=== PATIENT | female | born 1955 | race Caucasian/White ===

== ENCOUNTER 2018-05-25 11:41 | Outpatient (CLI) | payer BC | END 2018-05-25 11:42 | disposition home or self-care (01) | LOC: BICMAMMO 11:41 | PROVIDERS: ATTEND Family Medicine | DX: Z12.31 Encounter for screening mammogram for malignant neoplasm of breast (principal); Z80.3 Family history of malignant neoplasm of breast | CPT/HCPCS: 77063; 77067 ==

== ENCOUNTER 2018-11-12 16:15 | Outpatient (CLI) | payer BC ==
--- NOTE | 2018-11-12 16:41 | RAD ---
EXAM: CHEST TWO VIEWS: History: Dyspnea for one week, obese. Patient cannot raise arms. Comparison: 01-27-17 FINDINGS: Poor inspiration with cardiomegaly and bilateral vascular congestion. This congestion is worse when c ompared to the prior study. No confluent lobar pneumonia. IMPRESSION: Poor inspiration with cardiomegaly and bilateral vascular congestion which is worse from the prior study. POS: [facility]
== END 2018-11-12 16:16 | disposition home or self-care (01) ==
LOC: BICRAD 16:15
PROVIDERS: ATTEND Family Medicine
DX: R06.02 Shortness of breath (principal); I51.7 Cardiomegaly; R91.8 Other nonspecific abnormal finding of lung field; R09.89 Other specified symptoms and signs involving the circulatory and respiratory systems
CPT/HCPCS: 36415; 71046; 80053; 83880; 85379

== ENCOUNTER 2018-11-13 13:01 | Outpatient (CLI) | payer BC ==
--- NOTE | 2018-11-13 13:57 | CT ---
FCT angiogram chest: 11/13/2018 COMPARISON: None HISTORY: Shortness of breath, elevated d-dimer, assess for pulmonary embolism TECHNIQUE: Axial CT imaging at 2 mm intervals through the chest with IV contrast using a CT angiogram protocol. Coronal and oblique 3-D reformatted imaging obtained. FINDINGS: No axillary, hilar, or mediastinal lymphadenopathy. Imaged upper abdomen unremarkable. Small bilateral pleural effusions noted. Trace pericardial fluid in the superior pericardial recess. Punctate focus of coronary artery calcification on axial image 79. No pulmonary arterial filling defects seen to suggest the presence of acute pulmonary arterial emboli sm. No endobronchial lesion noted. No focal pulmonary parenchymal mass lesion or nodule noted on either side. Review of the osseous structures demonstrates no acute findings. IMPRESSION: No CT angiographic evidence of acute pulmonary arterial embolism. Small bilateral pleural effusions.
== END 2018-11-13 13:02 | disposition home or self-care (01) ==
LOC: SCSCT 13:01
PROVIDERS: ATTEND Physician Assistant
DX: R06.02 Shortness of breath (principal); R89.9 Unspecified abnormal finding in specimens from other organs, systems and tissues; J90 Pleural effusion, not elsewhere classified
CPT/HCPCS: 71275

== ENCOUNTER 2018-11-16 11:55 | Inpatient (IN) | payer BC ==
[2018-11-16 14:01] VITALS: BMI 50.8
[2018-11-16] MEDS ORDERED: Fleet Enema 133 ML BOT PR PRN (14:18)
[2018-11-16] MEDS ORDERED: Milk Of Magnesia 30 ML UDCUP PO PRN (14:18)
[2018-11-16] MEDS ORDERED: Mag-Al 1200 mg/1200 mg/30 ML UDCUP PO PRN (14:18)
[2018-11-16] MEDS ORDERED: Bisacodyl 5 MG TAB PO PRN (14:18)
[2018-11-16 14:51] LABS: #Basophils 0.1 thou/uL (0.0-0.2); #Lymphocytes 2.1 thou/uL (1.20-3.40); #Monocytes 1.3 thou/uL (0.11-0.59); #Neutrophils 7.8 thou/uL (1.40-6.50); %Basophils 0.9 % (0.0-1.0); %Eosinophils 0.2 % (0.0-10.0); %Lymphocytes 18.5 % (21.0-51.0); %Monocytes 11.5 % (0.0-10.0); Hemoglobin 13.8 g/dL (12.0-16.0); Mean Corpuscular HGB CONC 31.8 g/dL (32.0-36.0); Mean Corpuscular Hemoglobin 31.3 pg (27.0-31.0); Mean Corpuscular Volume 98.4 fL (78.0-98.0); Mean Platelet Volume 8.3 fL (7.4-10.4); Platelet Count 219 thou/uL (130-400); White Blood Cell (WBC) Count 11.3 thou/uL (4.8-10.8)
[2018-11-16 15:13] LABS: Anion Gap 13 mmol/L (10-20); BUN (Urea Nitrogen) 18 mg/dL (9.8-20.1); Calc. Creatinine Clearance 151 mL/min (70-130); Calcium 9.6 mg/dL (7.8-10.44); Carbon Dioxide 30 mmol/L (23-31); Chloride 105 mmol/L (98-107); Estimated GFR-MDRD 60; Glucose 97 mg/dL (80-115); Potassium 3.6 mmol/L (3.5-5.1); Sodium 144 mmol/L (136-145)
[2018-11-16] MEDS: Diltiazem 125 MG in Sodium Chloride 0.9% 100 ML IVPB SCH (15:32)
[2018-11-16] MEDS ORDERED: Sodium Chloride 0.9% 10 ML ONE (15:40)
[2018-11-16] MEDS ORDERED: Furosemide 40 MG/4 ML VIAL SLOW IVP SCH (16:00)
[2018-11-16] MEDS: Apixaban 5 MG TAB PO SCH (20:53)
[2018-11-17] MEDS: Apixaban 5 MG TAB PO SCH ×2 (08:43→21:37)
[2018-11-17] MEDS: Diltiazem 125 MG in Sodium Chloride 0.9% 100 ML IVPB SCH (13:15)
--- NOTE | 2018-11-17 15:10 | PDOC.CTH ---
Cardiology Progress Note - Subjective No new issues. - Objective Vital Signs Temp Pulse Resp BP Pulse Ox 11/17/18 11:45 98.2 F 97 18 131/95 H 98 11/17/18 07:43 97.5 F L 97 15 132/86 93 L 11/17/18 04:45 95 11/17/18 03:30 97.6 F 94 18 128/85 Weight 341 lb 3.2 oz 11/16/18 11/17/18 11/18/18 06:59 06:59 06:59 Intake Total 826.6 590 Output Total 1590 Balance -763.4 590 - Physical Examination General/Neuro: alert & oriented x3, NAD Neck: no JVD present Lungs: CTA, unlabored respirations Heart: RRR Abdomen: NT/ND Extremities: other: (no edema) - Telemetry Telemetry Rhythm: Afib HR 110;. - Labs Result Diagrams: 11/16/18 14:34 11/16/18 14:34 - Assessment/Plan 1. Afib RVR 2. Bronchial asthma, well controlled. 3. Depression PLAN: - Continue rate control - Increase diltiazem to 10 mg/hr - Eliquis for stroke prophylaxis.
[2018-11-18] MEDS: Diltiazem 125 MG in Sodium Chloride 0.9% 100 ML IVPB SCH ×2 (02:37→16:26)
[2018-11-18 05:14] LABS: Hemoglobin 13.2 g/dL (12.0-16.0); Platelet Count 195 thou/uL (130-400)
[2018-11-18] MEDS: Apixaban 5 MG TAB PO SCH ×2 (08:37→20:46)
--- NOTE | 2018-11-18 17:48 | PDOC.CTH ---
Cardiology Progress Note - Subjective She feels well. Remains in afib. - Objective Vital Signs Temp Pulse Resp BP Pulse Ox 11/18/18 11:55 97.5 F L 91 18 142/96 H 99 11/18/18 08:01 97.7 F 91 19 127/89 94 L Weight 343 lb 12.8 oz 11/17/18 11/18/18 11/19/18 06:59 06:59 06:59 Intake Total 826.6 1645 Output Total 1590 500 Balance -763.4 1145 - Physical Examination General/Neuro: alert & oriented x3, NAD Neck: no JVD present Lungs: unlabored respirations Heart: other: (Irreg irregh) Abdomen: soft Extremities: other: (no edema) - Telemetry Telemetry Rhythm: Afib HR 100-120 - Labs Result Diagrams: 11/18/18 04:27 11/18/18 04:27 - Assessment/Plan 1. Afib RVR 2. Bronchial asthma, well controlled. 3. Depression PLAN: - Continue rate control - Will start beta murray. - Will start Flecainide for possible PATRICE Cardioversion if cant achieve rate control. - Eliquis for stroke prophylaxis.
[2018-11-18] MEDS: Flecainide 50 MG TAB PO SCH (20:46)
[2018-11-18] MEDS: Metoprolol Tartrate 25 MG TAB PO SCH (20:46)
[2018-11-19] MEDS: Diltiazem 125 MG in Sodium Chloride 0.9% 100 ML IVPB SCH ×2 (04:51→21:17)
[2018-11-19] MEDS: Metoprolol Tartrate 25 MG TAB PO SCH ×2 (10:16→20:50)
[2018-11-19] MEDS: Flecainide 50 MG TAB PO SCH ×2 (10:16→20:50)
[2018-11-19] MEDS: Apixaban 5 MG TAB PO SCH ×2 (10:16→20:50)
[2018-11-19] MEDS ORDERED: PROPOFOL 200 MG/20 ML VIAL ONE (15:09)
[2018-11-19] MEDS ORDERED: PROPOFOL 20 ML ONE (16:34)
[2018-11-19] MEDS ORDERED: Diltiazem HCl SR 90 mg Capsule PO SCH (21:00)
[2018-11-20 05:17] LABS: Hemoglobin 13.9 g/dL (12.0-16.0); Platelet Count 203 thou/uL (130-400)
--- NOTE | 2018-11-20 06:11 | PDOC.CTH ---
Cardiology Progress Note - Subjective Rate cotnrol better on CCB and low dose BB. Decreased IV CCB to 5mg/hr IV - Objective Vital Signs Temp Pulse Resp BP Pulse Ox 11/20/18 04:00 97.5 F L 69 21 H 114/77 93 L 11/20/18 00:00 98.5 F 83 20 107/78 92 L 11/19/18 20:00 97.4 F L 79 20 106/68 96 Weight 343 lb 12.8 oz 11/18/18 11/19/18 11/20/18 06:59 06:59 06:59 Intake Total 1645 1160 110 Output Total 500 420 Balance 1145 740 110 - Physical Examination General/Neuro: alert & oriented x3, NAD Neck: carotid US brisk, no JVD present Lungs: CTA, unlabored respirations Heart: other: (IRR) Abdomen: NT/ND, soft Extremities: + femoral B - Telemetry Telemetry Rhythm: afib - Labs Result Diagrams: 11/20/18 04:50 11/20/18 04:50 - Assessment/Plan afib Cardiomyopathy obesity Check echo today increase CCB Change lopressor to coreg Pt with spontaneous echo contrast on echo. Incomplete study given hypoxia during the PATRICE. Continue with rate control Add amiodarone PO given low EF
[2018-11-20] MEDS ORDERED: Furosemide 40 MG/4 ML VIAL IVP SCH (06:15)
[2018-11-20] MEDS: Apixaban 5 MG TAB PO SCH ×2 (08:13→20:45)
[2018-11-20] MEDS: Carvedilol 3.125 MG TAB PO SCH ×2 (08:13→20:45)
[2018-11-20] MEDS: Diltiazem HCl SR 90 mg Capsule PO SCH ×4 (08:14→20:45)
[2018-11-20] MEDS ORDERED: Carvedilol 6.25 MG TAB PO SCH (09:00)
--- NOTE | 2018-11-21 05:53 | PDOC.CTH ---
Cardiology Progress Note - Subjective HR better overall./ No complaints - Objective Vital Signs Temp Pulse Resp BP Pulse Ox 11/21/18 04:00 97.7 F 78 20 102/67 97 11/21/18 00:00 84 110/77 11/20/18 20:00 97.6 F 83 20 129/72 95 Weight 343 lb 12.8 oz 11/19/18 11/20/18 11/21/18 06:59 06:59 06:59 Intake Total 9588 967 6463 Output Total 420 Balance 860 239 5538 - Physical Examination General/Neuro: alert & oriented x3, NAD Neck: no JVD present Lungs: unlabored respirations Heart: other: (irr) Abdomen: NT/ND, soft Extremities: + femoral B - Telemetry Telemetry Rhythm: IRR - Labs Result Diagrams: 11/21/18 06:18 11/21/18 06:18 - Assessment/Plan Afib Obesity MIld to moderate CM Change CCB to long acting Increase coreg Check labs Decrease IV CCB Ambulate Add amiodarone Home tomorrow if rate stable
[2018-11-21] MEDS ORDERED: Furosemide 40 MG/4 ML VIAL IVP SCH (06:00)
[2018-11-21 07:21] LABS: #Basophils 0.1 thou/uL (0.0-0.2); #Eosinphils 0.1 thou/uL (0.0-0.7); #Lymphocytes 1.7 thou/uL (1.20-3.40); #Monocytes 1.2 thou/uL (0.11-0.59); #Neutrophils 6.4 thou/uL (1.40-6.50); %Basophils 1.1 % (0.0-1.0); %Eosinophils 0.9 % (0.0-10.0); %Lymphocytes 17.8 % (21.0-51.0); %Monocytes 12.6 % (0.0-10.0); %Neutrophils 67.6 % (42.0-75.0); Hemoglobin 13.3 g/dL (12.0-16.0); Mean Corpuscular HGB CONC 31.5 g/dL (32.0-36.0); Mean Corpuscular Hemoglobin 31.1 pg (27.0-31.0); Mean Corpuscular Volume 98.5 fL (78.0-98.0); Mean Platelet Volume 8.4 fL (7.4-10.4); Platelet Count 195 thou/uL (130-400); RBC Distribution Width 12.7 % (11.5-14.5); Red Blood Cell (RBC) Count 4.27 mill/uL (4.20-5.40); White Blood Cell (WBC) Count 9.4 thou/uL (4.8-10.8)
[2018-11-21 07:28] LABS: Anion Gap 10 mmol/L (10-20); BUN (Urea Nitrogen) 17 mg/dL (9.8-20.1); Calc. Creatinine Clearance 173 mL/min (70-130); Calcium 9.1 mg/dL (7.8-10.44); Carbon Dioxide 33 mmol/L (23-31); Chloride 101 mmol/L (98-107); Estimated GFR-MDRD 70; Glucose 101 mg/dL (80-115); Sodium 140 mmol/L (136-145)
[2018-11-21] MEDS: Amiodarone 200 MG TAB PO SCH ×2 (08:41→20:02)
[2018-11-21] MEDS: Apixaban 5 MG TAB PO SCH ×2 (08:42→20:01)
[2018-11-21] MEDS: Carvedilol 3.125 MG TAB PO SCH ×2 (08:42→20:01)
[2018-11-21] MEDS ORDERED: Diltiazem 125 MG in Sodium Chloride 0.9% 100 ML IVPB SCH (11:00)
[2018-11-22 05:59] LABS: Platelet Count 177 thou/uL (130-400)
[2018-11-22] MEDS: Amiodarone 200 MG TAB PO SCH (08:28)
[2018-11-22] MEDS: Apixaban 5 MG TAB PO SCH (08:29)
[2018-11-22] MEDS: Carvedilol 3.125 MG TAB PO SCH (08:29)
--- NOTE | 2018-11-22 10:56 | DIS ---
DATE OF ADMISSION: 11/16/2018 DATE OF DISCHARGE: 11/22/2018 DISCHARGE DIAGNOSES: 1. Atrial fibrillation with rapid ventricular response. 2. Pxjp-hy-rjwhizxu congestive heart failure. 3. Morbid obesity. PROCEDURE: Transesophageal echocardiogram. HOSPITAL COURSE: Ms. De Santiago is a 63-year-old woman, whom I saw and evaluated as an outpatient. She was found to be in new onset atrial fibrillation with rapid ventricular response. Heart rate was in the 160s to 170s. It was decided to proceed with admission for close observation and rate control. She underwent attempted rate control over the weekend. This was unsuccessful. She continued to be on IV Cardizem. She was scheduled for PATRICE cardioversion on 11/19/2018. There were some issues noted with PATRICE. This was limited. She developed hypoxia in the middle of the study. There were limited views. There was significant spontaneous echo contrast noted within the left atrial appendage. Given limited views, decided not to proceed with cardioversion. Overall, LVEF did appear to be 40%. It was then decided on proceeding with a more aggressive rate control. She was placed on Cardizem at 360 q.a.m. in addition to low-dose beta-murray therapy. She did achieve rate control with discontinuing IV Cardizem on day of discharge. She did diurese with Lasix. Plan is to proceed with cardioversion as an outpatient after she has received 4 weeks of anticoagulation therapy. DISCHARGE MEDICATIONS: Include; 1. Centrum Silver and cranberry as prescribed. 2. Vitamin D as prescribed. 3. Prozac 40 q.a.m. 4. Symbicort as prescribed. 5. ProAir as prescribed. 6. Lasix 40 q.a.m. 7. Amiodarone 400 mg 1 p.o. q.a.m. 8. Eliquis 5 mg p.o. b.i.d. 9. Carvedilol 6.25 b.i.d. 10. Diltiazem 360 q.a.m. 11. Lasix 40 daily. CONDITION ON DISCHARGE: Stable. Job ID: [id number]
[2018-11-22 12:06] VITALS: BP 121/79; TEMP 97.5
--- NOTE | 2018-11-23 09:10 | PQF ---
[employer] Teletype Technician Crystal Reports Winform Viewer SANDY SAMPSON RICARDO MD [id number] CLINICAL DOCUMENTATION CLARIFICATION FORM: POST DISCHARGE Addendum to original discharge summary date: ____ Late entry note date: __ DATE: November 23, 2018 ATTN:Dr Tania Brambila Please exercise your independent, professional judgment in responding to the clarification form. Clinical indicators are provided on the bottom of this form for your review Based on your clinical judgment kindly clarify the type and acuity of the patients CHF. Please check appropriate box(s): HEART FAILURE: A. TYPE: [ ] Systolic / HFrEF [ ] Diastolic / HFpEF [ ] Combined Systolic / Diastolic B. ACUITY [ ] Acute [ ] Acute on Chronic [ ] Chronic [ ] Other diagnosis [ ] Unable to determine In addition, please specify: Present on Admission (POA): [ ] Yes [ ] No [ ] Unable to determine For continuity of documentation, please document condition throughout progress notes and discharge summary. Thank You. CLINICAL INDICATORS - SIGNS / SYMPTOMS / LABS -PN by Dr. Brambila 11/20 pg2 Cardiomyopathy -DS by Dr. Brambila 11/22, pg1 Mild to moderate Congestive heart failure -DS by Dr. Brambila 11/22, pg1 There was some issues noted with PATRICE, This was limited. She developed hypoxia in the middle of the study. -TTE results 11/20 - Ejection Fraction =40 % -Vital Signs 11/20 O2 Sat 92 L -PN by Dr. Landin 11/18 pg1- Telemetry Rhythm : 100-120 -Laboratory report 11/20 - FPA=562.2 H RISKS: -Atrial Fibrillation RVR- PN Cardiology 11/16 pg1 -Morbid Obesity-DS 11/[address] Brambila -Mild to Moderate CM PN 11/[address] Brambila TREATMENTS: -Furosemide Lasix IV- 11/16 -Cavedilol 6.25 mg twice a day - OCT -Telemetry Heart Failure Panel -TTE- 11/[address] Brambila -Oxygen 1L via Nasal cannula Respiratory Panel (This form is maintained as a part of the permanent medical record) 2014 [employer] All Rights Reserved Allison [email or web address] [not provided] MTDD
== END 2018-11-22 12:44 | disposition home or self-care (01) | DRG 309 ==
LOC: 2NO 12:03 → OBSVTOIN 12:03
PROVIDERS: ADMIT Internal Medicine Cardiovascular Disease; ATTEND Internal Medicine Cardiovascular Disease
PROC: B24BZZ4 Ultrasonography of Heart with Aorta, Transesophageal (ICD-10-PCS; principal; 2018-11-19)
DX: I48.91 Unspecified atrial fibrillation (principal); Z68.43 Body mass index [BMI] 50.0-59.9, adult; J45.998 Other asthma; F32.9 Major depressive disorder, single episode, unspecified; I42.9 Cardiomyopathy, unspecified; E66.01 Morbid (severe) obesity due to excess calories; R09.02 Hypoxemia; I50.9 Heart failure, unspecified; Z88.2 Allergy status to sulfonamides; Z88.8 Allergy status to other drugs, medicaments and biological substances; Z88.1 Allergy status to other antibiotic agents; Z88.5 Allergy status to narcotic agent; Z79.82 Long term (current) use of aspirin; Z79.51 Long term (current) use of inhaled steroids; Z79.52 Long term (current) use of systemic steroids
CPT/HCPCS: 36415; 71275; 80048; 82565; 83880; 84443; 85014; 85018; 85025; 85049; 92960; 93306; 93312; J1940; J2704; J7050

== ENCOUNTER 2019-07-22 19:00 | Outpatient (CLI) | payer BC | END 2019-07-22 19:01 | disposition home or self-care (01) | LOC: SLEEPLAB 19:00 | PROVIDERS: ATTEND Internal Medicine Pulmonary Disease | DX: G47.33 Obstructive sleep apnea (adult) (pediatric) (principal); E66.9 Obesity, unspecified | CPT/HCPCS: 95806 ==

== ENCOUNTER 2020-09-24 09:03 | Outpatient (CLI) | payer MEDICARE, BC ==
--- NOTE | 2020-09-24 10:11 | MMO ---
Bilateral MAMMO Bilat Screen [facility]. CLINICAL HISTORY: Patient is 65 years old and is seen for screening. The patient has the following family history of breast cancer: sister, at age 51. The patient has no personal history of cancer. VIEWS: The views performed were: bilateral craniocaudal with tomosynthesis and bilateral mediolateral oblique with tomosynthesis. FILMS COMPARED: The present examination has been compared to prior imaging studies performed at [facility] on 10/03/2013, 10/22/2014, 10/13/2016 and 05/25/2018. This study has been interpreted with the assistance of computer-aided detection. MAMMOGRAM FINDINGS: There are scattered fibroglandular densities. There are no suspicious masses, suspicious calcifications, or new areas of architectural distortion. IMPRESSION: THERE IS NO MAMMOGRAPHIC EVIDENCE OF MALIGNANCY. A ROUTINE FOLLOW-UP MAMMOGRAM IN 1 YEAR IS RECOMMENDED. THE RESULTS OF THIS EXAM WERE SENT TO THE PATIENT. ACR BI-RADS Category 1 - Negative MAMMOGRAPHY NOTE: 1. A negative mammogram report should not delay a biopsy if a dominant of clinically suspicious mass is present. 2. Approximately 10% to 15% of breast cancers are not detected by mammography. 3. Adenosis and dense breasts may obscure an underlying neoplasm. Reported by: ZARINA ORELLANA MD Electonically Signed: [id number]
== END 2020-09-24 09:04 | disposition home or self-care (01) ==
LOC: BICMAMMO 09:03
PROVIDERS: ATTEND Physician Assistant
DX: Z12.31 Encounter for screening mammogram for malignant neoplasm of breast (principal); Z80.3 Family history of malignant neoplasm of breast
CPT/HCPCS: 77063; 77067

== ENCOUNTER 2021-07-16 10:48 | Outpatient (CLI) | payer MEDICARE, BC ==
[2021-07-16 12:30] LABS: #Basophils 0.2 10x3/uL (0.0-0.2); #Eosinphils 0.1 10x3/uL (0.0-0.5); #Monocytes 0.9 10x3/uL (0.0-1.1); #Neutrophils 7.7 10x3/uL (1.5-8.4); %Basophils 1.2 % (0.0-2.0); %Eosinophils 0.8 % (0.0-6.0); %Lymphocytes 25.8 % (18.0-47.0); %Monocytes 7.8 % (0.0-10.0); %Neutrophils 63.7 % (40.0-75.0); Hemoglobin 15.4 g/dL (12.0-15.5); Mean Corpuscular HGB CONC 31.9 g/dL (32.0-36.0); Mean Corpuscular Hemoglobin 31.7 pg (27.0-33.0); Mean Corpuscular Volume 99.4 fl (81.6-98.3); Mean Platelet Volume 9.5 fl (7.4-10.4); Platelet Count 347 10x3/uL (150-450); RBC Distribution Width 13.3 % (11.5-14.5); Red Blood Cell (RBC) Count 4.86 10x6/uL (3.90-5.03); White Blood Cell (WBC) Count 12.1 10x3/uL (3.5-10.5)
[2021-07-16 12:44] LABS: Prothrombin Time 10.7 sec (9.5-12.1)
[2021-07-16 12:48] LABS: Anion Gap 17 mmol/L (10-20); BUN (Urea Nitrogen) 15 mg/dL (9.8-20.1); Calc. Creatinine Clearance 0 mL/min (70-130); Calcium 9.1 mg/dL (7.8-10.44); Carbon Dioxide 23 mmol/L (23-31); Chloride 103 mmol/L (98-107); Glucose 103 mg/dL (80-115); Sodium 139 mmol/L (136-145)
[2021-07-16 16:53] LABS: Bilirubin Neg (Negative); Blood, Urine Negative (Negative); Clarity Slightly Cloudy (Clear); Glucose, Urine (Dipstick) Normal (Negative); Ketone, Urine Negative (Negative); Leukocyte 500 (Negative); Nitrite Negative (Negative); Protein, Urine (Dipstick) 30 mg/dl (Neg-Trace)
[2021-07-16 23:18] LABS: SARS-CoV-2 PCR by NAA Not Detected (NotDetected)
== END 2021-07-16 10:49 | disposition home or self-care (01) ==
LOC: LABBT 10:48
PROVIDERS: ATTEND Orthopaedic Surgery
DX: Z01.818 Encounter for other preprocedural examination (principal); M17.11 Unilateral primary osteoarthritis, right knee; Z20.822 Contact with and (suspected) exposure to COVID-19
CPT/HCPCS: 80048; 81003; 85025; 85610; 87081; 93005; U0003; U0005; 93010

== ENCOUNTER 2021-07-20 06:40 | Inpatient (IN) | payer MEDICARE, BC ==
[2021-07-14 11:17] VITALS: BMI 41.2
[2021-07-20] MEDS ORDERED: Levofloxacin 500 mg/D5W 100 ml Premix Bag ONE (07:38)
[2021-07-20] MEDS ORDERED: Sodium Chloride 0.9% 100 ML ONE (07:38)
[2021-07-20] MEDS ORDERED: Tranexamic Acid 1,000 MG/10 ML VIAL ONE (07:38)
[2021-07-20] MEDS ORDERED: Bupivacaine PF 0.5% 30 ML VIAL ONE (08:03)
[2021-07-20] MEDS ORDERED: Fentanyl 100 MCG/2 ML VIAL ONE ×6 (08:11→14:02)
[2021-07-20] MEDS ORDERED: Midazolam HCl 2 mg/2 ml Vial ONE (08:11)
[2021-07-20] MEDS ORDERED: diphenhydrAMINE 25 MG CAP PO PRN (08:57)
[2021-07-20] MEDS ORDERED: Zolpidem Tartrate 5 MG TAB PO PRN ×2 (08:57→09:15)
[2021-07-20] MEDS ORDERED: traMADol HCl 50 MG TAB PO PRN ×3 (08:57→09:15)
[2021-07-20] MEDS ORDERED: Acetaminophen 325 MG TAB PO PRN (08:57)
[2021-07-20] MEDS ORDERED: HYDROcodone/Acetaminophen 10/325 mg Tablet PO PRN ×2 (08:57)
[2021-07-20] MEDS ORDERED: Promethazine HCl 25 MG/ML VIAL IM PRN ×3 (08:57→11:23)
[2021-07-20] MEDS ORDERED: Fentanyl 100 MCG/2 ML VIAL SLOW IVP PRN ×2 (08:57→09:07)
[2021-07-20] MEDS ORDERED: Ondansetron PF 4 MG/2 ML Vial IVP PRN ×2 (08:57→09:15)
[2021-07-20] MEDS ORDERED: Ropivacaine 0.2% 550 ML 550 ML NERVE BLCK SCH (09:15)
[2021-07-20] MEDS ORDERED: Bupivacaine HCl 0.5%/Epinephrine 1:200,000/PF 30 ml Vial ONE (09:28)
[2021-07-20] MEDS ORDERED: Lidocaine 1% PF 5 ML VIAL ONE (09:28)
[2021-07-20] MEDS ORDERED: Dexamethasone 20 MG/5 ML VIAL ONE (09:28)
[2021-07-20] MEDS ORDERED: Ondansetron PF 4 MG/2 ML Vial ONE (09:28)
[2021-07-20] MEDS ORDERED: PROPOFOL 200 MG/20 ML VIAL ONE (09:28)
[2021-07-20] MEDS ORDERED: Promethazine HCl 25 MG/ML VIAL IVPB PRN (11:23)
[2021-07-20] MEDS ORDERED: Ondansetron HCl/PF 4 MG/2 ML Vial IVP PRN (11:23)
[2021-07-20] MEDS ORDERED: Morphine Sulfate 2 MG/ML SYRINGE SLOW IVP PRN (11:23)
[2021-07-20] MEDS ORDERED: Ketorolac Tromethamine 30 MG/ML VIAL IVP SCH (14:00)
[2021-07-20] MEDS: Carvedilol 3.125 MG TAB PO SCH ×2 (15:54→21:52)
[2021-07-20] MEDS: Bumetanide 1 MG TAB PO SCH (15:54)
[2021-07-20] MEDS: Aspirin 81 mg Enteric Coated Tablet PO SCH ×2 (15:54→21:52)
[2021-07-20] MEDS: Digoxin 0.25 MG TAB PO SCH (15:54)
[2021-07-20] MEDS: FLUoxetine HCl 20 MG CAP PO SCH (15:55)
[2021-07-20] MEDS: Acetaminophen 325 MG TAB PO SCH ×3 (15:55→22:39)
[2021-07-20] MEDS: Sodium Chloride 0.9% 1,000 ML IV SCH ×2 (15:55→20:20)
[2021-07-20] MEDS: Ketorolac Tromethamine 30 MG/ML VIAL IVP SCH ×3 (15:56→22:39)
[2021-07-20] MEDS ORDERED: Vancomycin HCl 1.5 GM in Sodium Chloride 0.9% 250 ML 300 ML IVPB SCH (21:00)
[2021-07-20] MEDS ORDERED: Vancomycin 1.5 GRAM/300 ML BAG 1.5 GM in Premix Bag 1 BAG IVPB SCH (21:00)
[2021-07-20] MEDS ORDERED: Simvastatin 10 MG TAB PO SCH (21:00)
[2021-07-21] MEDS: Acetaminophen 325 MG TAB PO SCH ×5 (02:12→16:27)
[2021-07-21] MEDS: Sodium Chloride 0.9% 1,000 ML IV SCH ×2 (04:43→15:05)
[2021-07-21] MEDS: Ketorolac Tromethamine 30 MG/ML VIAL IVP SCH ×2 (05:16→11:46)
[2021-07-21 06:15] LABS: Hemoglobin 13.6 g/dL (12.0-16.0); Mean Corpuscular HGB CONC 32.8 g/dL (32.0-36.0); Mean Corpuscular Hemoglobin 33.1 pg (27.0-31.0); Mean Platelet Volume 6.7 fL (7.4-10.4); Platelet Count 312 thou/uL (130-400); Red Blood Cell (RBC) Count 4.11 mill/uL (4.20-5.40)
[2021-07-21] MEDS ORDERED: Ferrous Gluconate 324 MG TAB PO SCH (08:00)
[2021-07-21] MEDS ORDERED: Cholecalciferol 1,000 UNITS (25 MCG) TAB PO SCH (09:00)
[2021-07-21] MEDS ORDERED: Multivitamin W/ Minerals 1 TAB PO SCH (09:00)
[2021-07-21] MEDS ORDERED: Senokot S 8.6-50 MG TAB PO SCH (09:00)
[2021-07-21] MEDS: Aspirin 81 mg Enteric Coated Tablet PO SCH (09:33)
[2021-07-21] MEDS: FLUoxetine HCl 20 MG CAP PO SCH (09:33)
[2021-07-21] MEDS: Digoxin 0.25 MG TAB PO SCH (09:34)
[2021-07-21] MEDS: Bumetanide 1 MG TAB PO SCH (11:47)
[2021-07-21] MEDS: Carvedilol 3.125 MG TAB PO SCH (11:48)
[2021-07-21 16:25] VITALS: TEMP 97.7
[2021-07-21 16:27] VITALS: BP 93/62
== END 2021-07-21 18:00 | DRG 470 ==
LOC: SDC 06:40 → SURG A 14:29
PROVIDERS: ADMIT Orthopaedic Surgery; ATTEND Internal Medicine Geriatric Medicine
PROC: 0SRC0J9 Replacement of Right Knee Joint with Synthetic Substitute, Cemented, Open Approach (ICD-10-PCS; principal; 2021-07-20)
PROC: 8E0YXBZ Computer Assisted Procedure of Lower Extremity (ICD-10-PCS; 2021-07-20)
DX: M17.11 Unilateral primary osteoarthritis, right knee (principal); I48.92 Unspecified atrial flutter; Z68.41 Body mass index [BMI] 40.0-44.9, adult; I48.20 Chronic atrial fibrillation, unspecified; Z20.822 Contact with and (suspected) exposure to COVID-19; E78.5 Hyperlipidemia, unspecified; I11.0 Hypertensive heart disease with heart failure; I50.9 Heart failure, unspecified; E66.01 Morbid (severe) obesity due to excess calories; Z88.2 Allergy status to sulfonamides; Z88.5 Allergy status to narcotic agent; Z88.1 Allergy status to other antibiotic agents
CPT/HCPCS: 36415; 85027; A4306; C1713; C1776; J1100; J1885; J1956; J2250; J2405; J2704; J2795; J3010; J3370; J3490; J7030; S0020

== ENCOUNTER 2022-02-17 13:20 | Outpatient (CLI) | payer MEDICARE, BC ==
[2022-02-17 14:30] LABS: #Basophils 0.1 10x3/uL (0.0-0.2); #Eosinphils 0.1 10x3/uL (0.0-0.5); #Monocytes 1.5 10x3/uL (0.0-1.1); #Neutrophils 12.5 10x3/uL (1.5-8.4); %Basophils 0.6 % (0.0-2.0); %Eosinophils 0.4 % (0.0-6.0); %Lymphocytes 20.9 % (18.0-47.0); %Monocytes 8.2 % (0.0-10.0); Hemoglobin 15.7 g/dL (12.0-15.5); Mean Corpuscular HGB CONC 32.2 g/dL (32.0-36.0); Mean Corpuscular Hemoglobin 31.5 pg (27.0-33.0); Platelet Count 393 10x3/uL (150-450); RBC Distribution Width 14.1 % (11.5-14.5); Red Blood Cell (RBC) Count 4.98 10x6/uL (3.90-5.03); White Blood Cell (WBC) Count 18.1 10x3/uL (3.5-10.5)
[2022-02-17 14:51] LABS: Anion Gap 17 mmol/L (10-20); BUN (Urea Nitrogen) 20 mg/dL (9.8-20.1); Calc. Creatinine Clearance 0 mL/min (70-130); Calcium 9.7 mg/dL (7.8-10.44); Carbon Dioxide 28 mmol/L (23-31); Chloride 101 mmol/L (98-107); Estimated GFR 56; Glucose 98 mg/dL (80-115); Sodium 142 mmol/L (136-145)
[2022-02-17 14:53] LABS: INR-International Normal Ratio 0.9; Prothrombin Time 10.1 sec (9.5-12.1)
== END 2022-02-17 13:21 | disposition home or self-care (01) ==
LOC: LABBT 13:20
PROVIDERS: ATTEND Orthopaedic Surgery
DX: Z01.818 Encounter for other preprocedural examination (principal); M17.32 Unilateral post-traumatic osteoarthritis, left knee; Z20.822 Contact with and (suspected) exposure to COVID-19
CPT/HCPCS: 80048; 85025; 85610; 87081; 87811; 93005; 93010

== ENCOUNTER 2022-04-14 13:26 | Outpatient (CLI) | payer MEDICARE, BC ==
[2022-04-14 16:30] LABS: #Basophils 0.1 10x3/uL (0.0-0.2); #Eosinphils 0.1 10x3/uL (0.0-0.5); #Monocytes 0.9 10x3/uL (0.0-1.1); #Neutrophils 8.1 10x3/uL (1.5-8.4); %Basophils 0.9 % (0.0-2.0); %Eosinophils 0.8 % (0.0-6.0); %Lymphocytes 27.1 % (18.0-47.0); %Monocytes 7.4 % (0.0-10.0); %Neutrophils 63.1 % (40.0-75.0); Hemoglobin 14.9 g/dL (12.0-15.5); Mean Corpuscular HGB CONC 32.9 g/dL (32.0-36.0); Mean Corpuscular Hemoglobin 32.3 pg (27.0-33.0); Mean Corpuscular Volume 98.3 fl (81.6-98.3); Mean Platelet Volume 9.6 fl (7.4-10.4); Platelet Count 342 10x3/uL (150-450); RBC Distribution Width 14.5 % (11.5-14.5); Red Blood Cell (RBC) Count 4.61 10x6/uL (3.90-5.03); White Blood Cell (WBC) Count 12.8 10x3/uL (3.5-10.5)
[2022-04-14 16:37] LABS: Prothrombin Time 10.5 sec (9.5-12.1)
[2022-04-14 17:07] LABS: Anion Gap 18 mmol/L (10-20); BUN (Urea Nitrogen) 15 mg/dL (9.8-20.1); Calc. Creatinine Clearance 0 mL/min (70-130); Calcium 9.5 mg/dL (7.8-10.44); Carbon Dioxide 28 mmol/L (23-31); Chloride 99 mmol/L (98-107); Estimated GFR 63; Glucose 151 mg/dL (80-115); Potassium 3.9 mmol/L (3.5-5.1); Sodium 141 mmol/L (136-145)
== END 2022-04-14 13:27 | disposition home or self-care (01) ==
LOC: LABBT 13:26
PROVIDERS: ATTEND Orthopaedic Surgery
DX: Z01.818 Encounter for other preprocedural examination (principal); M17.32 Unilateral post-traumatic osteoarthritis, left knee; Z20.822 Contact with and (suspected) exposure to COVID-19
CPT/HCPCS: 80048; 85025; 85610; 87081; 87811; 93005; 93010

== ENCOUNTER 2022-04-19 05:35 | Inpatient (IN) | payer MEDICARE, BC ==
[2022-04-19] MEDS ORDERED: Tranexamic Acid 1,000 MG/10 ML VIAL ONE (06:03)
[2022-04-19] MEDS ORDERED: Vancomycin (BATCH) 1.5 GRAM/300 ML BAG ONE (06:03)
[2022-04-19] MEDS ORDERED: Sodium Chloride 0.9% 100 ML ONE (06:03)
[2022-04-19] MEDS ORDERED: fentaNYL Citrate/PF 100 MCG/2 ML SYRINGE ONE (06:20)
[2022-04-19] MEDS ORDERED: Bupivacaine PF 0.5% 30 ML VIAL ONE (06:25)
[2022-04-19] MEDS ORDERED: Fentanyl 100 MCG/2 ML VIAL ONE ×2 (06:38→09:38)
[2022-04-19] MEDS ORDERED: Midazolam HCl 2 mg/2 ml Vial ONE (06:38)
[2022-04-19] MEDS ORDERED: Levofloxacin 500 mg/D5W 100 ml Premix Bag ONE (06:43)
[2022-04-19] MEDS ORDERED: diphenhydrAMINE 25 MG CAP PO PRN (06:54)
[2022-04-19] MEDS ORDERED: Acetaminophen 325 MG TAB PO PRN (06:54)
[2022-04-19] MEDS ORDERED: traMADol HCl 50 MG TAB PO PRN ×4 (06:54→07:45)
[2022-04-19] MEDS ORDERED: Zolpidem Tartrate 5 MG TAB PO PRN ×2 (06:54→07:45)
[2022-04-19] MEDS ORDERED: Ondansetron PF 4 MG/2 ML Vial IVP PRN ×2 (06:54→07:45)
[2022-04-19] MEDS ORDERED: Promethazine HCl 25 MG/ML VIAL IM PRN ×3 (06:54→09:23)
[2022-04-19] MEDS ORDERED: Meclizine HCl 25 MG TAB PO PRN (06:56)
[2022-04-19] MEDS ORDERED: PROPOFOL 200 MG/20 ML VIAL ONE (07:20)
[2022-04-19] MEDS ORDERED: Phenylephrine 10 MG/ML VIAL ONE (07:20)
[2022-04-19] MEDS ORDERED: Ondansetron PF 4 MG/2 ML Vial ONE (07:20)
[2022-04-19] MEDS ORDERED: Dexamethasone 20 MG/5 ML VIAL ONE (07:20)
[2022-04-19] MEDS ORDERED: Bupivacaine HCl 0.5%/Epinephrine 1:200,000/PF 30 ml Vial ONE (07:20)
[2022-04-19] MEDS ORDERED: Fentanyl 100 MCG/2 ML VIAL SLOW IVP PRN (07:42)
[2022-04-19] MEDS ORDERED: Ropivacaine 0.2% 550 ML 550 ML NERVE BLCK SCH (07:45)
[2022-04-19] MEDS ORDERED: GLUCOSAMINE HCL 750 MG PO SCH (09:00)
[2022-04-19] MEDS ORDERED: Non-Formulary Item 1 EACH (Folic Acid/Multivit-Min/Lutein [Centrum Silver Chewable] 1 TAB PO SCH (09:00)
[2022-04-19] MEDS ORDERED: Ondansetron HCl/PF 4 MG/2 ML Vial IVP PRN (09:23)
[2022-04-19] MEDS ORDERED: Promethazine HCl 25 MG/ML VIAL IVPB PRN (09:23)
[2022-04-19] MEDS ORDERED: Meperidine HCl/PF 25 MG/ML VIAL SLOW IVP PRN (09:23)
[2022-04-19] MEDS: Bumetanide 1 MG TAB PO SCH (11:22)
[2022-04-19] MEDS: Aspirin 81 mg Enteric Coated Tablet PO SCH ×2 (11:22→21:02)
[2022-04-19] MEDS: FLUoxetine HCl 20 MG CAP PO SCH (11:23)
[2022-04-19] MEDS: Digoxin 0.25 MG TAB PO SCH (11:23)
[2022-04-19] MEDS: Cholecalciferol 1,000 UNITS (25 MCG) TAB PO SCH (11:23)
[2022-04-19] MEDS: Ketorolac Tromethamine 30 MG/ML VIAL IVP SCH ×3 (12:16→23:25)
[2022-04-19] MEDS: Acetaminophen 500 MG TAB PO SCH ×3 (12:17→23:25)
[2022-04-19] MEDS: Sodium Chloride 0.9% 1,000 ML IV SCH ×3 (12:17→21:56)
[2022-04-19 15:39] VITALS: BMI 47.9
[2022-04-19] MEDS ORDERED: Vancomycin 1.5 GRAM/300 ML BAG 1.5 GM in Premix Bag 1 BAG IVPB SCH (20:00)
[2022-04-19] MEDS: Simvastatin 10 MG TAB PO SCH (21:02)
[2022-04-20] MEDS: Acetaminophen 500 MG TAB PO SCH ×4 (05:59→23:37)
[2022-04-20] MEDS: Ketorolac Tromethamine 30 MG/ML VIAL IVP SCH ×4 (06:00→23:39)
[2022-04-20 06:20] LABS: Hemoglobin 12.4 g/dL (12.0-16.0); Mean Corpuscular HGB CONC 33.1 g/dL (32.0-36.0); Mean Corpuscular Hemoglobin 33.5 pg (27.0-31.0); Platelet Count 253 thou/uL (130-400); Red Blood Cell (RBC) Count 3.69 mill/uL (4.20-5.40); White Blood Cell (WBC) Count 23.4 thou/uL (4.8-10.8)
[2022-04-20] MEDS: Senokot S 8.6-50 MG TAB PO SCH ×2 (08:38→21:31)
[2022-04-20] MEDS: Bumetanide 1 MG TAB PO SCH (08:38)
[2022-04-20] MEDS: Digoxin 0.25 MG TAB PO SCH (08:38)
[2022-04-20] MEDS: FLUoxetine HCl 20 MG CAP PO SCH (08:38)
[2022-04-20] MEDS: Cholecalciferol 1,000 UNITS (25 MCG) TAB PO SCH (08:39)
[2022-04-20] MEDS: Aspirin 81 mg Enteric Coated Tablet PO SCH ×2 (08:39→21:30)
[2022-04-20] MEDS: Ferrous Gluconate 324 MG TAB PO SCH ×2 (08:39→18:11)
[2022-04-20] MEDS: Multivitamin W/ Minerals 1 TAB PO SCH (08:39)
[2022-04-20] MEDS: Sodium Chloride 0.9% 1,000 ML IV SCH ×2 (16:07→23:38)
[2022-04-20] MEDS: Simvastatin 10 MG TAB PO SCH (21:31)
[2022-04-21 06:00] LABS: Hemoglobin 12.1 g/dL (12.0-16.0); Mean Corpuscular HGB CONC 32.5 g/dL (32.0-36.0); Mean Corpuscular Hemoglobin 33.4 pg (27.0-31.0); Mean Platelet Volume 7.1 fL (7.4-10.4); Platelet Count 239 thou/uL (130-400); RBC Distribution Width 13.4 % (11.5-14.5); Red Blood Cell (RBC) Count 3.61 mill/uL (4.20-5.40); White Blood Cell (WBC) Count 20.1 thou/uL (4.8-10.8)
[2022-04-21] MEDS: Acetaminophen 500 MG TAB PO SCH ×2 (06:24→13:01)
[2022-04-21] MEDS: Ketorolac Tromethamine 30 MG/ML VIAL IVP SCH (06:25)
[2022-04-21] MEDS: Digoxin 0.25 MG TAB PO SCH (09:47)
[2022-04-21] MEDS: Ferrous Gluconate 324 MG TAB PO SCH (09:51)
[2022-04-21] MEDS: Bumetanide 1 MG TAB PO SCH (09:51)
[2022-04-21] MEDS: Senokot S 8.6-50 MG TAB PO SCH (09:52)
[2022-04-21] MEDS: Multivitamin W/ Minerals 1 TAB PO SCH (09:52)
[2022-04-21] MEDS: Cholecalciferol 1,000 UNITS (25 MCG) TAB PO SCH (09:52)
[2022-04-21] MEDS: FLUoxetine HCl 20 MG CAP PO SCH (09:52)
[2022-04-21] MEDS: Aspirin 81 mg Enteric Coated Tablet PO SCH (09:52)
[2022-04-21] MEDS: Sodium Chloride 0.9% 1,000 ML IV SCH (09:53)
[2022-04-21 12:40] VITALS: BP 96/61; TEMP 97
== END 2022-04-21 15:45 | disposition home or self-care (01) | DRG 470 ==
LOC: SDC 05:35 → SURG A 10:53
PROVIDERS: ADMIT Orthopaedic Surgery; ATTEND Orthopaedic Surgery
PROC: 0SRD0J9 Replacement of Left Knee Joint with Synthetic Substitute, Cemented, Open Approach (ICD-10-PCS; principal; 2022-04-19)
DX: M17.32 Unilateral post-traumatic osteoarthritis, left knee (principal); F32.A Depression, unspecified; I48.91 Unspecified atrial fibrillation; G89.29 Other chronic pain; I11.0 Hypertensive heart disease with heart failure; Z96.651 Presence of right artificial knee joint; Z98.890 Other specified postprocedural states; Z98.42 Cataract extraction status, left eye; Z98.41 Cataract extraction status, right eye
CPT/HCPCS: 36415; 76000; 85027; A4306; C1713; C1776; J1100; J1885; J1956; J2250; J2370; J2405; J2704; J2795; J3010; J3370; J3490; J7050; S0020

== ENCOUNTER 2022-07-22 09:18 | Outpatient (CLI) | payer MEDICARE, BC | END 2022-07-22 09:19 | disposition home or self-care (01) | LOC: BICMAMMO 09:18 | PROVIDERS: ATTEND Nurse Practitioner Family | DX: Z13.820 Encounter for screening for osteoporosis (principal); E28.39 Other primary ovarian failure; M85.851 Other specified disorders of bone density and structure, right thigh; M85.852 Other specified disorders of bone density and structure, left thigh; Z78.0 Asymptomatic menopausal state | CPT/HCPCS: 77080 ==

== ENCOUNTER 2022-12-26 14:03 | Outpatient (CLI) | payer MEDICARE, BC | END 2022-12-26 14:04 | disposition home or self-care (01) | LOC: BICMAMMO 14:03 | PROVIDERS: ATTEND Nurse Practitioner Family | DX: Z12.31 Encounter for screening mammogram for malignant neoplasm of breast (principal) | CPT/HCPCS: 77063; 77067 ==

== ENCOUNTER 2023-12-28 10:38 | Outpatient (CLI) | payer MEDICARE | END 2023-12-28 10:39 | disposition home or self-care (01) | LOC: BICMAMMO 10:38 | PROVIDERS: ATTEND Nurse Practitioner Family | DX: Z12.31 Encounter for screening mammogram for malignant neoplasm of breast (principal); Z80.3 Family history of malignant neoplasm of breast | CPT/HCPCS: 77063; 77067 ==